=== PATIENT | female | born 2000 | race American Indian/Alaskan Native ===

== ENCOUNTER 2019-05-27 13:28 | Outpatient (CLI) | payer BC ==
--- NOTE | 2019-05-27 14:14 | XRay Report ---
LEFT KNEE, 3 views: History: Left knee pain. The bony architecture is intact without evidence of fracture or dislocation. No significant soft tissue abnormality is seen. IMPRESSION: Normal left knee.
--- NOTE | 2019-05-27 14:15 | XRay Report ---
RIGHT ANKLE, 3 views: History: right ankle pain. Bone mineralization is normal. No acute osseous abnormality or joint pathology is identified. The soft tissues are unremarkable. IMPRESSION: Normal study.
== END 2019-05-27 13:29 | disposition home or self-care (01) ==
LOC: XRAY 13:28
PROVIDERS: ATTEND Pediatrics
DX: S99.911A Unspecified injury of right ankle, initial encounter (principal); S80.912A Unspecified superficial injury of left knee, initial encounter; X58.XXXA Exposure to other specified factors, initial encounter; Y93.89 Activity, other specified; Y92.89 Other specified places as the place of occurrence of the external cause; Y99.8 Other external cause status

== ENCOUNTER 2019-06-09 07:35 | Outpatient (CLI) | payer BC ==
--- NOTE | 2019-06-09 09:22 | Magnetic Resonance Report ---
MRI of the right ankle without contrast INDICATION: Right ankle pain. FINDINGS: The bone marrow signal of the right ankle is normal. No stress reaction or fracture is iden tified. The intrinsic ligaments of the ankle are intact. There is tendinosis involving the peroneus b carlos alberto and peroneus longus beyond the level of the lateral malleolus. No drainable fluid collection or ganglion is identified. The flexor and extensor tendons are grossly intact. The joint spaces are wel l-maintained. No evidence of tarsal coalition. IMPRESSION: Mild tendinosis involving the lateral flexor tendons of the ankle (near the level of the external marker) involving the peroneus brevis and longus. Signer Name: Nicholas Fletcher MD Signed: 06/09/2019 9:18 AM Workstation Name: [id number]
== END 2019-06-09 07:36 | disposition home or self-care (01) ==
LOC: MRI 07:35
PROVIDERS: ATTEND Pediatrics
DX: M76.71 Peroneal tendinitis, right leg (principal)
CPT/HCPCS: 73721